=== PATIENT | female | born 1995 | race Caucasian/White ===

== ENCOUNTER 2019-03-25 16:39 | Emergency (ER) | payer MEDICAID ==
[~2019-03-25] VITALS: Ht 162.6 cm; Wt 79.0 kg
[2019-03-25 16:47] VITALS: BP 120/72
--- NOTE | 2019-03-25 17:04 | NUR ---
PT BIB SELF FOR THROAT PAIN, AND COUGH FOR 1 WEEK. PT HAS BEEN TAKING OTC MEDS W/O RELIEF. TONSILS SWOLLEN, INFLAMMED, WHITE MUCUS NOTED TO BACK OF THROAT. PA SMITH AWARE OF PT STATUS. RR EVEN AND UNLABORED, BL BS CLEAR. PT IN NO RR DISTRESS, AIRWAY PATENT AT THIS TIME.
[2019-03-25] MEDS ORDERED: DEXAMETHASONE 10 MG/ML VIAL IVP ONE (17:05)
[2019-03-25] MEDS ORDERED: CLINDAMYCIN 900 MG in DEXTROSE 5% 100 ML IV ONE (17:05)
[2019-03-25] MEDS ORDERED: NACL 0.9% 1,000 ML IV ONE (17:05)
--- NOTE | 2019-03-25 17:20 | NUR ---
PT MOVED TO BED 12.
[2019-03-25] MEDS ORDERED: CLINDAMYCIN 900 MG/6 ML VIAL IV ONE (17:26)
[2019-03-25 18:06] LABS: BASOPHILS % (AUTO) 0.2 % (0.0-2.0); EOSINOPHILS % (AUTO) 0.2 % (0.0-4.0); HEMATOCRIT 41.7 % (36-48); HEMOGLOBIN 13.9 g/dL (12.0-16.0); LYMPHOCYTES # (AUTO) 1.5 K/uL (2.5-16.5); LYMPHOCYTES % (AUTO) 21.8 % (20.5-51.1); MEAN CORPUSCULAR HEMOGLOBIN 30 pg (27-31); MEAN CORPUSCULAR HGB CONC 33 g/dL (33-37); MEAN CORPUSCULAR VOLUME 90.3 fL (80-94); MONOCYTES # (AUTO) 0.5 K/uL (0.8-1.0); MONOCYTES % (AUTO) 7.5 % (1.7-9.3); NEUTROPHILS # (AUTO) 4.9 K/uL (1.8-7.7); NEUTROPHILS % (AUTO) 70.3 % (42.2-75.2); PLATELET COUNT (AUTO) 277 K/uL (140-450); RED BLOOD CELL COUNT(AUTO) 4.62 MIL/uL (4.20-5.40)
[2019-03-25 19:01] LABS: ANION GAP 11.4 (8-16); CARBON DIOXIDE 29.8 mmol/L (21-32); CREATININE 0.8 mg/dL (0.6-1.3); POTASSIUM 3.2 mmol/L (3.5-5.1)
[2019-03-25 19:08] LABS: TOTAL BILIRUBIN 0.2 mg/dL (0.0-1.0)
--- NOTE | 2019-03-25 19:10 | NUR ---
REPORT RECEIVED FROM STEFANIE GARCIA. TRANSFER OF CARE AT THIS TIME.
--- NOTE | 2019-03-25 19:16 | NUR ---
PT TAKEN TO CT VIA WC.
--- NOTE | 2019-03-25 19:30 | NUR ---
PT RETURNED FROM CT VIA WC.
[2019-03-25 19:42] LABS: PROTHROMBIN TIME 9.1 secs (10.8-13.4)
--- NOTE | 2019-03-25 19:45 | NUR ---
PT SITTING QUIETLY WITH MOM AT BEDSIDE. SKIN PINK, WARM, DRY. BREATHING EVEN, UNLABORED. OFFERED COLD FLUIDS FOR COMFORT MEASURES FOR SORE THROAT. PROVIDED WITH APPLE JUICE. NO COMPLAINTS AT THIS TIME.
[2019-03-25] MEDS ORDERED: BENZOCAINE 20% 57 GM CAN MC ONE (19:50)
--- NOTE | 2019-03-25 20:22 | NUR ---
PT AMBULATES TO WITH STEADY GAIT. BENZOCAINE AT BEDSIDE FOR BRANDON SMITH.
--- NOTE | 2019-03-25 20:33 | NUR ---
PROCEDURE SET UP COMPLETED. BRANDON SMITH MADE AWARE.
--- NOTE | 2019-03-25 20:45 | NUR ---
BRANDON SMITH PERFORMING NEEDLE ASPIRATION TO TONSILS WITH EMT ASSISTANCE AT BEDSIDE.
[2019-03-25] MEDS ORDERED: HYDROcodone/APAP 7.5/325 MG 1 TAB PO ONE (21:05)
--- NOTE | 2019-03-25 21:30 | NUR ---
DISCHARGE PAPERS GIVEN TO PATIENT. PT STATES RELIEF. VSS. RX OF CLINDAMYCIN, NORCO AND PROMETHAZINE GIVEN. SIDE EFFECTS EXPLAINED. INSTRUCTED TO F/U WITH PCP AND WHEN TO RETURN TO ER. PT VERBALLIZED UNDERSTANDING OF DC INSTRUCTIONS. ALL QUESTIONS ANSWERED.
[2019-03-25 21:35] VITALS: BP 121/73
== END 2019-03-25 21:30 | disposition home or self-care (01) ==
LOC: MED 16:39
DX: J36 Peritonsillar abscess (principal); J06.9 Acute upper respiratory infection, unspecified
CPT/HCPCS: 36415; 42700; 70491; 80053; 81025; 85025; 85610; 86308; 87081; 96365; 96375; 99284; J1100; J3490; J7030; Q9967

== ENCOUNTER 2019-06-04 03:11 | Emergency (ER) | payer MEDICAID ==
[~2019-06-04] VITALS: Ht 160 cm; Wt 79.0 kg
[2019-06-04 03:12] VITALS: BP 102/70
--- NOTE | 2019-06-04 03:15 | NUR ---
TO LOBBY A/W BED , AMBULATORY
--- NOTE | 2019-06-04 03:35 | NUR ---
24 Y/O FEMALE C/O RECTAL BLEEDING X 0 YESTERDAY. PT STATES EVERYTIME SHE HAD A BM AND WHEN SHE WIPES THERES BRIGHT RED BLOOD. PT STATES SHES CONSTIPATED. 4/10 PAIN AND DESCRIBES IT DISCOMFORT. LUNG SOUNDS CLEAR ALL THROUGHOUT. NO DISTRESS NOTED. ABD IS ROUND, SOFT, NOTENDER, ACTIVE BS. NO N,V,D,OR FEVR. PT ALSO C/O LEFT LEG NUMBNESS AND TINGLING X MONTHS NOW. NKA. PMH: ASTHMA.
--- NOTE | 2019-06-04 03:35 | NUR ---
PT AMBULATED TO BED 1 WITH MOTHER
--- NOTE | 2019-06-04 03:35 | NUR ---
A & O X4. STEADY GAIT.
[2019-06-04 05:46] VITALS: BP 102/70
--- NOTE | 2019-06-04 05:46 | NUR ---
Patient discharged with v/s stable. Written and verbal after care instructions given and explained. Patient alert, oriented and verbalized understanding of instructions. Ambulatory with steady gait. All questions addressed prior to discharge. ID band removed. Patient advised to follow up with PMD. Rx of LACTULOSE given. Patient educated on indication of medication including possible reaction and side effects. Opportunity to ask questions provided and answered.
== END 2019-06-04 05:46 | disposition home or self-care (01) ==
LOC: MED 03:11
DX: K64.9 Unspecified hemorrhoids (principal); K59.00 Constipation, unspecified
CPT/HCPCS: 99283

== ENCOUNTER 2019-07-22 19:54 | Emergency (ER) | payer MEDICAID ==
[~2019-07-22] VITALS: Ht 160 cm; Wt 78.9 kg
[2019-07-22 20:14] VITALS: BP 129/87
[2019-07-22] MEDS ORDERED: KETOROLAC 30 MG/ML VIAL IM ONE (21:25)
[2019-07-22 22:52] VITALS: BP 129/87
== END 2019-07-22 22:52 | disposition home or self-care (01) ==
LOC: MED 19:54
DX: N83.202 Unspecified ovarian cyst, left side (principal)
CPT/HCPCS: 76856; 81002; 81025; 93976; 96372; 99284; J1885